=== PATIENT | male | born 1945 | race Caucasian/White ===

== ENCOUNTER 2019-04-20 13:51 | Emergency (ER) | payer MEDICARE ==
[~2019-04-20] VITALS: Ht 172.7 cm; Wt 136.0 kg
[2019-04-20 15:15] LABS: HEMATOCRIT 29.4 % (39.0-50.0); HEMOGLOBIN 9.3 g/dl (14.0-18.0); IMMATURE GRANULOCYTES 0.3 % (0.0-5.0); MEAN CELL VOLUME 93.6 fL CALC (80.0-100.0); MEAN CORPUSCULAR HGB 29.6 pG CALC (26.0-32.0); MEAN CORPUSCULAR HGB CONC 31.6 g/L CALC (32.0-36.0); NEUT# 1.91 thou/uL (1.82-7.42); RED BLOOD COUNT 3.14 mill/uL (4.70-6.10); RED CELL DISTRI WIDTH 13.2 % (11.5-15.5)
[2019-04-20 15:37] LABS: ANION GAP 14 (6-22 (CALC)); BUN 15 mg/dL (8-23); BUN/CREATININE RATIO 22 (12-20 (CALC)); CARBON DIOXIDE 23 mmol/l (22-30); CHLORIDE 107 mmol/l (95-108); CREATININE 0.7 mg/dL (0.7-1.3); GFR > 60 ML/MIN (>=60 (CALC)); GFR FOR AFR.AMER. > 60 ML/MIN (>=60 (CALC)); POTASSIUM 4.2 mmol/l (3.5-5.1); SODIUM 139 mmol/l (137-146)
[2019-04-20] MEDS ORDERED: MULTI VIT PO (15:56)
[2019-04-20] MEDS ORDERED: OMEPRAZOLE10 MG PO (15:57)
[2019-04-20] MEDS ORDERED: ASPIRIN81 MG PO (15:57)
[2019-04-20] MEDS ORDERED: IRON (FERROUS S50 MG PO (15:58)
[2019-04-20] MEDS ORDERED: KRILL OIL300 MG PO (15:59)
[2019-04-20] MEDS ORDERED: PRAVASTATIN20 MG PO (16:00)
[2019-04-20] MEDS ORDERED: AMIODARONE200 MG PO (16:00)
[2019-04-20] MEDS ORDERED: NIACIN SR500 M1 PO (16:01)
[2019-04-20] MEDS ORDERED: COUMADIN5 MG PO (16:02)
[2019-04-20] MEDS ORDERED: WARFARIN2.5 MG PO (16:03)
[2019-04-20] MEDS ORDERED: FINASTERIDE5 MG PO (16:26)
[2019-04-20] MEDS ORDERED: TAMSULOSIN HCL0.4 MG PO (16:26)
[2019-04-20 16:35] VITALS: BP 133/59
== END 2019-04-20 16:35 | disposition home or self-care (01) ==
LOC: ED 13:51
PROVIDERS: Family Medicine
DX: I95.2 Hypotension due to drugs (principal); T44.6X5A Adverse effect of alpha-adrenoreceptor antagonists, initial encounter; T50.995A Adverse effect of other drugs, medicaments and biological substances, initial encounter; I48.91 Unspecified atrial fibrillation; R10.31 Right lower quadrant pain

== ENCOUNTER 2019-11-10 | Emergency (ER) | payer MEDICARE ==
[~2019-11-10] MED LIST: AMIODARONE200 MG PO; ASPIRIN81 MG PO; COUMADIN5 MG PO; FINASTERIDE5 MG PO; IRON (FERROUS S50 MG PO; KRILL OIL300 MG PO; MULTI VIT PO; NIACIN SR500 M1 PO; OMEPRAZOLE10 MG PO; PRAVASTATIN20 MG PO; TAMSULOSIN HCL0.4 MG PO; WARFARIN2.5 MG PO
[2019-11-10 22:03] LABS: HEMATOCRIT 34.7 % (39.0-50.0); HEMOGLOBIN 11.5 g/dl (14.0-18.0); IMMATURE GRANULOCYTES 0.3 % (0.0-5.0); MEAN CELL VOLUME 95.9 fL CALC (80.0-100.0); MEAN CORPUSCULAR HGB 31.8 pG CALC (26.0-32.0); MEAN CORPUSCULAR HGB CONC 33.1 g/L CALC (32.0-36.0); NEUT# 2.34 thou/uL (1.82-7.42); RED BLOOD COUNT 3.62 mill/uL (4.70-6.10); RED CELL DISTRI WIDTH 12.8 % (11.5-15.5)
[2019-11-10 22:16] LABS: PROTHROMBIN TIME 20.1 SECONDS (9.0-12.5)
[2019-11-10 22:30] LABS: ALBUMIN 4.1 g/dL (3.2-5.0); ALKALINE PHOSPHATASE 55 u/l (38-126); ANION GAP 12 (6-22 (CALC)); BILIRUBIN, TOTAL 0.6 mg/dL (0.0-1.4); BUN 18 mg/dL (8-23); BUN/CREATININE RATIO 25 (12-20 (CALC)); CARBON DIOXIDE 24 mmol/l (22-30); CHLORIDE 107 mmol/l (95-108); CREATININE 0.7 mg/dL (0.7-1.3); GFR > 60 ML/MIN (>=60 (CALC)); GFR FOR AFR.AMER. > 60 ML/MIN (>=60 (CALC)); POTASSIUM 4.2 mmol/l (3.5-5.1); SGOT/AST 28 u/l (19-48); SODIUM 138 mmol/l (137-146); TOTAL PROTEIN 6.9 g/dL (6.3-8.2)
== END 2019-11-10 23:30 | disposition home or self-care (01) ==
PROVIDERS: Family Medicine
DX: K64.8 Other hemorrhoids (principal); I48.91 Unspecified atrial fibrillation; Z79.01 Long term (current) use of anticoagulants